=== PATIENT | female | born 1980 | race Caucasian/White ===

== ENCOUNTER 2020-11-08 15:17 | Emergency (ER) | payer SELFPAY ==
[2020-11-08 15:40] VITALS: BP 138/78; PULSE 84; RESP 16; TEMP 36.8; O2SAT 98; BMI 38.3
--- NOTE | 2020-11-08 16:14 | HMH.EDUTC ---
[facility] Disposition Clinical Impression: Puncture wound Disposition: Home, Self-Care Condition on Discharge: Good Instructions: DI for Puncture Wound, Amoxicillin and Clavulanic Acid Additional Instructions: Clean wound multiple times throughout the day with antibacterial soap and water Take antibiotics as prescribed Watch for signs of infection such as redness, drainage, swelling and warmth Return if needed Straight to ER if any life threatening symptoms Prescriptions: Amoxicillin/Potassium Clav [Augmentin 875-125 Tablet] 1 tab PO Q12H 7 Days #14 tab Transmission Status: Pending to [facility] Referrals: Provider,Referral, [Primary Care Provider] - As needed Time of Disposition: 16:19 Medical Decision Making - Rashad Inquiry Pt receiving controlled substance: No Rashad was queried for this patient: No Vital Signs: 11/08/20 15:40 Temperature 98.3 F Temperature Source Oral Pulse Rate [Right Brachial] 84 Respiratory Rate 16 Blood Pressure [Right Arm] 138/78 Blood Pressure Mean [Right Arm] 98 Blood Pressure Source [Right Arm] Automatic Cuff Blood Pressure Position [Right Arm] Sitting 02 Sat by Pulse Oximetry 98 Oxygen Delivery Method Room Air Orders (Tests/Meds): ED MEDICATIONS Discontinued Medications Generic Name Dose Route Start Last Admin Trade Name Freq PRN Reason Stop Dose Admin Tetanus/Reduced Diphtheria/Acell Pertussis 0.5 ml 11/08/20 15:55 11/08/20 16:03 Tet/Diphth/Pert-Adult 0.5ml Syringe IM 11/08/20 15:56 0.5 ml .ONCE ONE Administration Medical Decision Narrative: wound area cleaned well with hibacleanse and saline [facility] HPI - General Stated complaint: [id number] right thumb injured,home Time Seen by Provider: 11/08/20 16:14 Mode of Arrival: Ambulatory Source of Information: Patient Limitations: No Limitations Description of Symptoms (Recalled from Triage Doc. by RN): PATIENT STATES SHE WAS STUCK BY A DIRTY WIRE TO RIGHT THUMB TODAY. NEEDING TDAP HEENT Symptoms (Recalled from RN notes): No Resp Symptoms (Recalled from RN notes): No Skin Symptoms (Recalled from RN notes): Yes MS Symptoms (Recalled from RN notes): No Functional Status (Recalled from RN notes): WNL - History of Present Illness Provider Complaint: Patient states that she was poked in the tip of her right thumb with dirty chicken wire that had dirt and feces on it State that she cleaned her hand immediately but was worried where the wire was so dirty so she came in to get PPD and see if she needed some antibiotics - Related Data Previous Rx's Medication Instructions Recorded Amoxicillin/Potassium Clav 1 tab PO Q12H 7 Days #14 tab 11/08/20 [Augmentin 875-125 Tablet] Allergies Allergy/AdvReac Type Severity Reaction Status Date / Time No Known Allergies Allergy Verified 02/05/19 07:41 - Worker's Comp Is this a Worker's Comp case?: No [facility] History - Hepatitis A Screen Drug use history?: No High risk sexual behaviors?: No History of sexually transmitted infection?: No Currently employed?: No Childcare worker?: No Do you have indoor plumbing?: Yes Do you have electricity?: Yes Attestation statement:: This patient has been screened for Hepatitis A risk factors. I have reviewed the patient's past medical history: Yes ROS Obtained: Yes All systems reviewed & no additional complaints, Yes Systems reviewed as appropriate & no additional complaints - Constitutional Constitutional: Reports system reviewed and no additional complaints, except as docu, Denies body ache, Denies chills, Denies fever(s) - ENT Ears, Nose, Mouth, and Throat: Reports system reviewed and no additional complaints, except as docu - Cardiovascular Cardiovascular: Reports system reviewed and no additional complaints, except as docu - Respiratory Respiratory: Reports system reviewed and no additional complaints, except as docu - Gastrointestinal Gastrointestingal: Reports: system r
[2020-11-08 16:20] VITALS: BP 138/78; PULSE 84; RESP 16; TEMP 36.8; O2SAT 98
== END 2020-11-08 16:25 | disposition home or self-care (01) ==
PROVIDERS: Emergency Provider Nurse Practitioner
DX: S61.031A Puncture wound without foreign body of right thumb without damage to nail, initial encounter (principal); W22.8XXA Striking against or struck by other objects, initial encounter; Y92.018 Other place in single-family (private) house as the place of occurrence of the external cause; Z23 Encounter for immunization
CPT/HCPCS: 90471; 90715; 99202; G0463

== ENCOUNTER → 2022-04-05 13:09 | Outpatient (CLI) | payer BC, SELFPAY ==
--- NOTE | 2022-04-05 13:14 | MM_ITS ---
PROCEDURE INFORMATION: Exam: Bilateral Screening 3D Mammography Exam date and time: 04/05/2022 1:31 PM Age: 41 years old Clinical indication: Baseline. Her mother had breast cancer in her 40s in 60s. TECHNIQUE: Imaging protocol: Bilateral Screening tomosynthesis and 2D mammography including computer-aided detection (CAD) when performed. COMPARISON: No relevant prior studies available. FINDINGS: MAMMOGRAPHY: Breast composition: The breasts are almost entirely fatty. Mass: 0.5 cm intramammary node in the left upper outer quadrant posterior 3rd which demonstrates a fatty hilum. No suspicious mass. Architectural distortion: None. Calcifications: No suspicious calcifications. Asymmetric density: None. Skin thickening: None. Axillary adenopathy: None. IMPRESSION: No mammographic evidence of malignancy. Annual screening is recommended unless otherwise clinically indicated. ASSESSMENT: BI-RADS Category 2: Benign
== END ==
PROVIDERS: Visit Provider Obstetrics & Gynecology
DX: Z84.81 Family history of carrier of genetic disease (principal); Z12.31 Encounter for screening mammogram for malignant neoplasm of breast
CPT/HCPCS: 77063; 77067